=== PATIENT | female | born 1990 | race African-American/Black ===

== ENCOUNTER 2022-02-09 09:24 | Outpatient (CLI) | payer OTHER, SELFPAY ==
--- NOTE | ~2022-02-09 | US_ITS ---
EXAMINATION: US pelvic complete w TV DATE: 02/09/2022 09:58 INDICATION: Excessive and frequent menstruation with irregular cycles. TECHNIQUE: Multiple transabdominal and transvaginal sonographic images of the pelvis were obtained. COMPARISON: Ultrasound 10/25/2021 FINDINGS: TRANSABDOMINAL ULTRASOUND: The uterus measures 7.2 x 4.4 x 5.7 cm. There is no free fluid in the pelvis. TRANSVAGINAL ULTRASOUND: The endometrial complex measures 6 mm in thickness. There is a scar in anterior lower uterine segment from prior section. The right ovary measures 2.8 x 1.4 x 2.3 cm. The left ovary measures 2. 5 x 1.8 x 1.4 cm. There is normal vascular flow in the ovaries. IMPRESSION: 1. Normal pelvis. Reviewed, dictated and finalized at location A. IMPRESSION: 1. Normal pelvis.
[2022-02-09 10:21] LABS: Hematocrit 37.4 % (37.0-47.0); Hemoglobin 11.7 g/dL (12.0-15.0); Mean Corpuscular HGB Conc 31.3 g/dl (32-36); Mean Corpuscular Hemoglobin 25.8 pg (26-34); Mean Corpuscular Volume 82.6 fl (80-100); Mean Platelet Volume 9.7 fl (7.4-10.4); Platelet Count Result 307 k/mm3 (150-375); Red Blood Count 4.53 M/mm3 (4.2-5.4); Red Cell Distribution Width 14.9 % (11.5-14.5); White Blood Count 8.8 K/mm3 (4.5-10.0)
== END 2022-02-09 09:25 | disposition home or self-care (01) ==
PROVIDERS: Visit Provider Obstetrics & Gynecology
DX: N92.1 Excessive and frequent menstruation with irregular cycle (principal); N85.00 Endometrial hyperplasia, unspecified
CPT/HCPCS: 36415; 76830; 76856; 85027

== ENCOUNTER 2022-04-08 07:52 | Outpatient (CLI) | payer OTHER, SELFPAY | END 2022-04-08 07:53 | disposition home or self-care (01) | PROVIDERS: Visit Provider Obstetrics & Gynecology | DX: Z01.812 Encounter for preprocedural laboratory examination (principal); N92.1 Excessive and frequent menstruation with irregular cycle | CPT/HCPCS: 36415; 86850; 86900; 86901 ==

== ENCOUNTER 2022-04-14 07:04 | Inpatient (IN) | payer OTHER, SELFPAY ==
--- NOTE | 2022-04-04 14:50 | SUR.PREOP ---
Report to the Outpatient Waiting Room, entrance under the green pavilion located off [facility], at time 0700 on date 04/14/22. OR Time: 0900. - You and your visitor will be asked a series of questions to screen for COVID 19 for your protection. - Only one visitor is allowed at this time. - The patient visitor is requested to leave or wait in car when not with patient. - A mask is required within the hospital. Patients may have clear liquids (water, carbonated beverages, clear teas, apple juice) until 3 hours prior to surgery with a maximum of 20 ounces. - NO CLEARS LIQUIDS AFTER 0600 - No food from midnight until time of surgery - Infants may have breast milk until 4 hours before surgery, infant formula 6 hours prior to surgery. - Children will be allowed to drink immediately following surgery. If applicable, please bring a bottle or sippy cup to assist with drinking. Juice, water, soda, and popsicles are readily available. For infants on formula, please bring formula the day of surgery. Pacifiers are allowed. Please no make-up, nail azeri, hairspray, perfume, deodorant, or body powder the day of surgery. No jewelry (including any body piercings) or valuables the day of surgery, leave them at home. Please take a shower or bath the night before, or the morning of, surgery with an antibacterial soap. Wear comfortable, loose fitting clothing. Children are encouraged to wear pajamas. - Jewelry must be removed prior to entering the operating room. Rings and piercings that are not removed may be cut off. - The hospital will not accept responsibility for valuables. - Please leave all valuables, including medications, at home the day of surgery. If you are going home after surgery, a licensed owner operator tanker truck driver must drive you home. - NO public transportation without another adult. - We recommend that an adult stay with you for 24 hours following discharge. - We also recommend that you do not drive, make important decision, drink alcoholic beverages, or take any drugs that were not prescribed by your health care provider for at least 24 hours after your discharge time. For Pediatric surgeries, we recommend two adults accompany the child home (only one inside the building at this time). Follow any additional instructions given to you from your surgeon. If you or anyone in your household have experienced Covid symptoms in the past week, please notify your surgeon or the nurse liaison at the phone number below for possible testing. Telephone instructions given to JENNIFER KEMP and asked if any additional questions and then verbalized understanding. Patient advised to call surgeon office or pre surgery nurse liaison [phone] if any additional questions.
[2022-04-04 15:03] VITALS: BMI 28.8
--- NOTE | 2022-04-12 18:19 | PM.IMHP ---
H&P: HPI History of Present Illness Date/Time: 04/12/22 18:19 31-year-old female 5 para 5005 presents with complaints of menstrual cycles lasting 5-7 days to 3 days very heavy with clotting cramping. These problems are interfering with her activities of daily living. Last year she underwent hysteroscopy D&C endometrial ablation which did work for a few months but states that she has intermittently and progressively been having the above-listed problems. We have discussed hormonal management and she declines this. Will proceed with hysterectomy, which will be supracervical due to her history of 5 previous deliveries. Chief Complaint: menometrorrhagia /failed endometrial ablation PMFSH Past Medical History Medical History Depression Surgical History Surgical History History of 02/05/05 12/04/05 02/24/11 04/15/13 History of hysteroscopy (10/22/20) Ablation History of tubal ligation (04/15/13) Hx laparoscopic cholecystectomy (12/20/13) Family History Family History Father Cerebrovascular accident Diabetes mellitus Hypertension Social History Social History Smoking status: Never smoker Alcohol intake: never Substance use: never Additional living arrangements comments: single Additional occupation/education comments: security Gender identity (if verbalized by the patient): Female Sexual Orientation (if Verbalized by the Patient): Straight or Heterosexual Spiritual care concerns: No Meds Home Medications and Allergies Home Medications Medication Instructions Recorded Confirmed Type No Home Medications 01/26/22 04/04/22 History Allergies Allergy/AdvReac Type Severity Reaction Status Date / Time ciprofloxacin [From Cipro] Allergy Severe Swelling Verified 04/04/22 14:43 ibuprofen Allergy Severe Difficulty Verified 04/04/22 14:43 Breathing tramadol Allergy Severe Vomiting Verified 04/04/22 14:43 Quinolones Allergy Intermediate Nausea and Unverified 04/04/22 14:43 Vomiting Exam Const: General: cooperative, healthy appearing and comfortable Resp: Effort & Inspection: normal respiratory effort Auscultation: clear to auscultation bilaterally Cardio: Rate: regular rate Rhythm: regular rhythm GI: Inspection: normal to inspection Auscultation: normal bowel sounds : External Female Exam: normal external appearance Speculum Exam - Vagina: normal appearance of the vagina Speculum Exam - Cervix: normal appearance of the cervix Bimanual exam- vagina & uterus: enlarged ( 10-12 week size and fixed) Bimanual Exam- Adnexa, other: normal adnexae Assessment and Plan Assessment and plan (1) Menometrorrhagia: Code(s): N92.1 - Excessive and frequent menstruation with irregular cycle Status: Acute (2) History of endometrial ablation: Code(s): Z98.890 - Other specified postprocedural states Status: Acute (3) Previous section: Code(s): Z98.891 - History of uterine scar from previous surgery Status: Acute Plan will proceed with abdominal hysterectomy with ovarian preservation. Likely will be supracervical.
[2022-04-14] VITALS (11 sets, daily range): BP systolic 93–134; BP diastolic 59–85; PULSE 74–104; RESP 14–18; TEMP 36.1–36.8; O2SAT 98–100
[2022-04-14] MEDS: LACTATED RINGERS 1,000 ML 30 ML IV CONT ×2 (07:45→10:09)
[2022-04-14] MEDS: ACETAMINOPHEN 500 MG TABLET 1000 MG PO (07:45)
[2022-04-14] MEDS: SCOPOLAMINE 1.5 MG PATCH TRANSDERM (07:49)
--- NOTE | 2022-04-14 07:55 | WPDANESEPPF ---
Anes - Initial Pre Proc Eval Procedure: Operation Date: 04/14/22 08:30 Proposed Procedures p Supracervical Abdominal Hysterectomy - Eleno Perez MD Date/Time: 04/14/22 07:55 Surgeon: Eleno Perez MD Pre Op Diagnosis: menometrorrhagia Patient Data Age: 31 Gender: F Height: 1.75 m Weight: 84.1 kg Allergies Allergy/AdvReac Type Severity Reaction Status Date / Time ciprofloxacin [From Cipro] Allergy Severe Swelling Verified 04/14/22 07:25 ibuprofen Allergy Severe Difficulty Verified 04/14/22 07:25 Breathing tramadol Allergy Severe Vomiting Verified 04/14/22 07:25 Quinolones Allergy Intermediate Nausea and Verified 04/14/22 07:25 Vomiting Home Medications Medication Instructions Recorded Confirmed Type No Home Medications 01/26/22 04/14/22 History Patient hx anesthesia problems: none Family hx anesthesia problems: none Results Review: All pre-operative results and documents have been reviewed as part of the pre-operative evaluation. [facility] Past Medical History Medical History Depression Surgical History Surgical History History of 02/05/05 12/04/05 02/24/11 04/15/13 History of hysteroscopy (10/22/20) Ablation History of tubal ligation (04/15/13) Hx laparoscopic cholecystectomy (12/20/13) Family History Family History Father Cerebrovascular accident Diabetes mellitus Hypertension Social History Social History Smoking status: Never smoker Alcohol intake: never Substance use: never Additional living arrangements comments: single Additional occupation/education comments: security Gender identity (if verbalized by the patient): Female Sexual Orientation (if Verbalized by the Patient): Straight or Heterosexual Spiritual care concerns: No Anes - Eval Final PreProcedure Day of Procedure 04/14/22 07:55 Patient weight: overweight Heart: regular rate and rhythm Lungs: clear to auscultation Airway: Mallampati scale class II Neurological: alert and oriented Last oral intake: >/= 8 hours ASA classification: II Emergent: no Anesthetic plan: proceed Anesthesia type and monitoring: general ETT and standard monitoring Results Review: All pre-operative results and documents have been reviewed as part of the pre-operative evaluation. Informed Consent: The patient's anesthetic plan and its attendant risks and benefits were discussed with the patient/family/POA. Questions were solicited and answers provided to the satisfaction of the patient/family/POA.
--- NOTE | 2022-04-14 08:08 | WPDHPUPDATE1 ---
History and Physical Update Update Date/Time: 04/14/22 08:08 History and Physical has been reviewed, including an updated exam of the patient. There are NO changes in the patient's condition. Risks, benefits, and alternatives have been discussed and questions answered. Patient agrees to proceed with procedure.
--- NOTE | 2022-04-14 08:10 | SUR.PREOP ---
DR ORTEZ AWARE THAT PATIENT DID NOT RECEIVE TORADOL DUE TO SEVERE ALLERGY TO IBUPROFEN RESULTING IN DIFFICULTY BREATHING.
[2022-04-14] MEDS: ceFAZolin 2 GM/D5W 50 ML 2 GM/50 ML BAG IVPB (08:20)
--- NOTE | 2022-04-14 10:01 | P.OP_ITS ---
Procedure Note - Detailed Date of Procedure 04/14/22 Pre-op Diagnosis menometrorrhagia Post-op Diagnosis Same Procedure Performed Abdominal supracervical hysterectomy with ovarian preservation Surgeon Eleno Perez MD Anesthesia General Findings Cervix densely adhered to bladder. Uterus globular though not significantly enlarged. Ovaries without abnormality. Description of Procedure Patient prepped in usual manner for this procedure. Pfannenstiel incision was made and carried down to the fascia. This was extended bilaterally the length of the skin incision. Superiorly inferiorly dissected away from the rectus muscles. Peritoneum was gently entered and no significant adhesions of bowel or omentum to the anterior abdominal wall. Patient was placed in Trendelenburg position and bowel was packed into the upper abdomen. Round ligaments were caut erized cut and bladder flap was developed down to the cervix. Posterior leaf was also dissected. Utero-ovarian ligaments were clamped cut and tied with good hemostasis noted. Uterine vessels were then skeletonized and cauterized cut and tied. Hemostasis was noted. At this point the cervix was amputated at the level of the cervix. Cervix was then closed using 0 Vicryl in running interlocking manner with good approximation hemostasis noted. Also of fascial suture sites were noted be hemostatic and was no significant bleeding from any of the other adhesive sites. John was empirically placed over the vaginal cuff. After all subfascial tissue was noted hemostatic and there was no bleeding the fascia was approximated 0 Vicryl in the left angle midline and the right angle to midline with good approximation. Subcutaneous tissue was approximated 0 suture and 4-0 Monocryl was used to approximate the skin edges. Patient was sent to recovery room in stable condition. Estimated Blood Loss 150 Drains Yes (Petty drainage to gravity) Packing No Pathology Yes Complications No immediate complications Condition Stable Disposition PACU [facility] Billing Surgery - Charge Forward: Surgery Billing
[2022-04-14] MEDS: ONDANSETRON INJ 4 MG/2 ML VIAL IV PUSH ×2 (10:32→14:45)
[2022-04-14] MEDS: HALOPERIDOL LACTATE 5 MG/ML VIAL 1 MG IV PUSH (11:04)
--- NOTE | 2022-04-14 11:04 | SUR.PHASEI ---
1058- Call to Dr. Sharpe for additional orders for anti emetic medication. Patient requesting medication to be given after 4MG zofran IVP at 1032 did not improve nausea. Orders obtained and placed for Haldol 1MG IVP, see NOV.
--- NOTE | 2022-04-14 11:24 | PC.NURSE ---
This patient, Roxie Gilmore, was received from PACU on 04/14/22 at 1124. Patient's family oriented to unit policies and routines, patient very drowsy at this time.
[2022-04-14] MEDS: DEXTROSE 5%/0.45% SOD CHL 1,000 ML 125 ML IV CONT (12:06)
[2022-04-14] MEDS: SIMETHICONE 80 MG TAB.CHEW PO ×2 (12:50→14:52)
[2022-04-14] MEDS: HYDROcodone/acetaminophen (*CRX) 5-325 MG TABLET 1 TAB PO (12:50)
[2022-04-14] MEDS: MORPHINE SULFATE (*CRX) 4 MG/ML INJ IV PUSH ×2 (14:46→18:38)
--- NOTE | 2022-04-14 18:51 | PC.NURSE ---
1156 Called Carina in Pharmacy to check interaction w/ Morphine RFP WRITER ordered and the Haldol that pt had received at 1104, the medications are not in the same class but Morphine can increase sedation. RN will hold Morphine RFP WRITER and call Dr. Perez. 1215 Called office, closed for lunch. Called exchange and MD has surgery scheduled at 1230. 1250 Pt c/o pain and is less drowsy, will hold Morphine RFP WRITER still and give [place] PO. Pt ok with that plan. 1315 Dr. Dailey on the floor, said Chris may still be in surgery, will have him call RN. [address] Perez's exchange, received call back. OK to HOLD Morphine RFP WRITER and D/C. Received order for Reglan 10mg q6 hrs PRN for nausea as pt is c/o of nausea and only has Zofran ordered. Advised MD that pt received Haldol in PACU for nausea and was very drowsy upon admission, RN held Morphine RFP WRITER and had given [place] 5mg @ 1250, pt tolerated well. Pt is now more alert and awake, ok per MD to continue with Morphine ordered IV push 4mg q4hrs and [place] PO for pain control. 1503 Upon entering order for Reglan, received alert on pt chart for interaction b/w Reglan and the Haldol given in PACU as a 1x order. Spoke w/ Carina in Pharmacy, ok to override as pt is no longer receiving Haldol.
[2022-04-15 00:35] VITALS: BP 110/70; PULSE 110; RESP 18
[2022-04-15] MEDS: MORPHINE SULFATE (*CRX) 4 MG/ML INJ IV PUSH (00:35)
[2022-04-15 04:54] LABS: Basophils Absolute Auto 0.1 K/mm3 (0.0-0.1); Basophils Percent Auto 0.6 % (0.2-1.2); Eosinophils Absolute Auto 0.1 K/mm3 (0-0.3); Eosinophils Percent Auto 0.6 % (0-4.4); Hematocrit 31.7 % (37.0-47.0); Hemoglobin 9.8 g/dL (12.0-15.0); Immature Granulocyte Absolute 0.04 K/mm3 (0.00-0.031); Immature Granulocyte Percent A 0.3 % (0-0.5); Lymphocytes Absolute Auto 2.34 K/mm3 (0.9-3.2); Lymphocytes Percent Auto 18.8 % (18.3-44.2); Mean Corpuscular HGB Conc 30.9 g/dl (32-36); Mean Corpuscular Hemoglobin 24.4 pg (26-34); Mean Corpuscular Volume 79.1 fl (80-100); Mean Platelet Volume 9.1 fl (7.4-10.4); Monocytes Absolute Auto 0.9 K/mm3 (0.1-0.6); Monocytes Percent Auto 7.5 % (2.6-8.5); Neutrophils Percent Auto 72.2 % (45.5-73.1); Platelet Count Result 363 k/mm3 (150-375); Red Blood Count 4.01 M/mm3 (4.2-5.4); Red Cell Distribution Width 14.9 % (11.5-14.5); White Blood Count 12.5 K/mm3 (4.5-10.0)
[2022-04-15 05:30] VITALS: BP 90/53; PULSE 98; RESP 20; TEMP 36.9
[2022-04-15] MEDS: HYDROcodone/acetaminophen (*CRX) 10-325 MG TABLET 1 TAB PO ×5 (05:33→23:18)
--- NOTE | 2022-04-15 06:53 | PM.GYNPNOP ---
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 Status: Acute Postoperative Procedures: Procedures Operation Date: 04/14/22 08:30 Actual Procedure Side Surgeon p Supracervical Abdominal Hysterectomy Eleno Perez MD Postoperative day: 1 Postoperative status: doing well Postoperative plan: routine post-op care, ambulate, advance diet and voiding trials Time Spent With Patient Time: Total time spent is greater than 50% in coordination of care (as documented) at patient's floor/unit and/or counseling patient: Time with patient: less than 15 minutes ABLE BODIED TANKERMAN- PN:Subj Post-Op Subjective Date/time seen: 04/15/22 06:53 Interval history: POD#1 Roxie reports doing ok today. Her pain is present but better controlled with the PO meds. She tried eating dinner last night but then had vomiting; none since and plans to order breakfast. Petty catheter was removed this AM; has not voided spontaneously yet. She denies gas. She has not ambulated yet, felt faint when trying for the first time. Review of Systems Constitutional: Constitutional: Denies chills, Denies fever(s) and Denies headache(s) Eyes: Eyes: Denies change in vision ENT: Denies dizziness and Denies headache(s) Cardiovascular: Cardiovascular: Denies chest pain, Denies palpitations and Denies dyspnea Respiratory: Respiratory: Denies cough and Denies dyspnea Gastrointestinal: Gastrointestinal: Denies nausea and Denies vomiting Genitourinary: Comments: normal bleeding Neurologic: Denies dizziness and Denies headache(s) Endocrine: Endocrine: Denies palpitations Exam Const: General: cooperative, healthy appearing, comfortable and no acute distress Orientation/consciousness: patient oriented x3 Resp: Effort & Inspection: normal respiratory effort Auscultation: clear to auscultation bilaterally Cardio: Rate: regular rate GI: Inspection: non-distended and incision (covered with clean dressing) GI Palp: Yes abdominal tenderness (appropriate) and Yes Soft to palpation Auscultation: normal bowel sounds Skin: General skin exam: normal color Neuro: General: patient oriented x3 Extrem: General: normal to inspection Psych: Appearance: grossly normal Affect: normal affect Attitude: cooperative ABLE BODIED TANKERMAN - PN: Obj Data Vital Signs Vital Signs: Vital Signs - 24 hr 04/14/22 07:05 04/14/22 10:09 04/14/22 10:20 Temperature 96.9 F L 97.9 F Pulse Rate 88 77 78 Respiratory Rate 18 14 15 Blood Pressure 134/85 99/59 L 93/62 L Pulse Oximetry 100 99 98 Oxygen Delivery Room Air Simple Face Mask Simple Face Mask Oxygen Flow Rate 8 8 04/14/22 10:25 04/14/22 10:30 04/14/22 10:45 Temperature 98.3 F Pulse Rate 79 76 74 Respiratory Rate 15 16 14 Blood Pressure 95/64 L 111/68 112/74 Pulse Oximetry 100 100 100 Oxygen Delivery Simple Face Mask Simple Face Mask Room Air Oxygen Flow Rate 8 8 04/14/22 11:00 04/14/22 11:25 04/14/22 12:27 Temperature 97.3 F L Pulse Rate 74 91 78 Respiratory Rate 18 16 16 Blood Pressure 126/73 134/72 Pulse Oximetry 99 100 Oxygen Delivery Room Air Oxygen Flow Rate 04/14/22 16:00 04/14/22 20:55 04/15/22 00:35 Temperature 98.2 F 97.7 F Pulse Rate 97 104 H 110 H Respiratory Rate 16 18 18 Blood Pressure 104/66 113/71 110/70 Pulse Oximetry 100 Oxygen Delivery Oxygen Flow Rate 04/15/22 05:30 Temperature 98.4 F Pulse Rate 98 Respiratory Rate 20 Blood Pressure 90/53 L Pulse Oximetry Oxygen Delivery Oxygen Flow Rate Intake/Output Intake/Output: Intake & Output 04/12/22 04/13/22 04/14/22 04/15/22 23:59 23:59 23:59 23:59 Intake Total 2500 740 Output Total 560 2800 Balance 1939 -2059 Meds/Results Medications: Active Medications Generic Name Dose Route Start Last Admin Trade Name Freq PRN Reason Stop Dose Admin Hydrocodone Bitart/A
[2022-04-15 08:05] VITALS: BP 105/64; PULSE 98; RESP 16; TEMP 37; O2SAT 97
[2022-04-15 09:45] VITALS: BP 96/53; PULSE 98; RESP 16; O2SAT 97
[2022-04-15] MEDS: METOCLOPRAMIDE HCL INJ 10 MG/2 ML VIAL IV PUSH (09:59)
[2022-04-15 10:00] VITALS: PULSE 98; RESP 16; O2SAT 97
--- NOTE | 2022-04-15 12:58 | P.PNAN_ITS ---
Anes - Prog Note Post-Op Date/Time: 04/15/22 12:58 Cardiovascular status: normal Respiratory status: normal Airway patency: baseline Mental status: baseline Post-Op hydration status: normal Vital Signs: Last Vital Signs Temp 37.0 C 04/15/22 08:05 Pulse 98 04/15/22 09:45 Resp 16 04/15/22 09:45 BP 96/53 L 04/15/22 09:45 Pulse Ox 97 04/15/22 09:45 O2 Del Method Room Air 04/14/22 11:00 O2 Flow Rate 8 04/14/22 10:30 Pain Score (VAS): 09/27 I/O: Intake & Output 04/14/22 04/15/22 04/15/22 23:59 07:59 15:59 Intake Total 1700 740 Output Total 500 2800 Balance 1200 -2060 Laboratory Tests 04/15/22 04:13 04/15/22 04:13 WBC 12.5 H RBC 4.01 L Hgb 9.8 L Hct 31.7 L MCV 79.1 L MCH 24.4 L MCHC 30.9 L RDW 14.9 H Plt Count 363 MPV 9.1 Immature Gran % (Auto) 0.3 Neut % (Auto) 72.2 Lymph % (Auto) 18.8 [place] % (Auto) 7.5 Eos % (Auto) 0.6 Baso % (Auto) 0.6 Lymph # (Auto) 2.34 [place] # (Auto) 0.9 H Eos # (Auto) 0.1 Baso # (Auto) 0.1 Abs Immat Gran (auto) 0.04 H Absolute Neuts (auto) 9.0 H Absolute Nucleated RBC 0.0 Nucleated RBC % 0.0 Post-procedural complaints: none Patient Feedback: Patient satisfied with anesthetic care.
[2022-04-15 19:00] VITALS: BP 106/65; PULSE 98; RESP 16; TEMP 36.4
[2022-04-16] MEDS: HYDROcodone/acetaminophen (*CRX) 10-325 MG TABLET 1 TAB PO ×2 (05:31→11:55)
--- NOTE | 2022-04-16 10:37 | PM.DS ---
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 She had extensive adhesions but an uncomplicated post-operative course. Stable vitals, labs, and exam. Status at Discharge Functional status at discharge: independent ambulation Overall status at discharge: patient is back to baseline Time Spent with Patient Time attestation: Total time spent providing and/or coordinating discharge services: Time spent: Less than 30 minutes Exam Const: General: cooperative, healthy appearing, comfortable and no acute distress Orientation/consciousness: patient oriented x3 Resp: Effort & Inspection: normal respiratory effort Auscultation: clear to auscultation bilaterally Cardio: Rate: regular rate GI: Inspection: non-distended and incision (covered with clean dressing) GI Palp: Yes abdominal tenderness (appropriate) and Yes Soft to palpation Auscultation: normal bowel sounds Skin: General skin exam: normal color Neuro: General: patient oriented x3 Extrem: General: normal to inspection Psych: Appearance: grossly normal Affect: normal affect Attitude: cooperative DS: Data Data Completed and Pending Completed studies during hospitalization: Pending at discharge 04/14/22 09:31 Surgical [PTH] Routine Discharge Plan Discharge Attending physician on discharge: Penelope Dailey Discharging Clinician: Penelope Dailey Anticipated Discharge Date/Time: 04/16/22 14:00 Patient Disposition: Home, Self-Care Activity: may shower, may drive after 2 weeks, pelvic rest and other - see discharge instructions Diet: regular Discharge Instructions: Remove the Scopolamine patch that was placed behind your ear on 04/14/2022 in 72 hours or less. Wash your hands after touching. No heavy lifting greater than 10 pounds for 6 weeks. Nothing in the vagina (no baths/pools, sex, tampons) for 6 weeks. Remove dressing by 04/20/22. Patient Instructions: Hysterectomy (DC) Stand Alone Forms: General Discharge Instructions Follow-up/Referrals: Eleno Perez MD [Physician] - 2 Weeks Discharge Medications: New hydrocodone-acetaminophen 5-325 mg Tablet 1 tablet PO Q3H PRN (Reason: Pain Rated 5 Or Less) 3 Days Qty: 24 0RF docusate sodium [Col-Rite] 100 mg capsule 100 mg PO BID Qty: 60 0RF No Action No Home Medications Date of admission: 04/15/22 14:10 Primary Care Provider: PHYSICIAN,OCCUPATIONAL THERAPY ASSIST Admitting Provider: Eleno Perez Attending physician on admission: Eleno Perez Condition: Stable
== END 2022-04-16 12:25 | disposition home or self-care (01) | DRG 513 ==
LOC: ANHSURGERY 10:49 → ANHOB2 04-16 10:37
PROVIDERS: Admitting Provider Obstetrics & Gynecology; Visit Provider Obstetrics & Gynecology
PROC: 0UT94ZZ Resection of Uterus, Percutaneous Endoscopic Approach (ICD-10-PCS; CPT 58180; principal; 2022-04-14 08:30)
DX: N92.1 Excessive and frequent menstruation with irregular cycle (principal); N83.8 Other noninflammatory disorders of ovary, fallopian tube and broad ligament; R10.2 Pelvic and perineal pain; Z98.891 History of uterine scar from previous surgery; Z90.49 Acquired absence of other specified parts of digestive tract
CPT/HCPCS: 58180; 36415; 85025; 88307; 99199; A9270; G0378; G0379; J0690; J1100; J1170; J1630; J2250; J2270; J2405; J2704; J2710; J2765; J3010; J7120

== ENCOUNTER 2024-04-13 08:51 | Emergency (ER) | payer MEDICAID, SELFPAY ==
[2024-04-13 08:54] VITALS: BP 128/84; PULSE 105; RESP 18; TEMP 36.4; O2SAT 100
--- NOTE | 2024-04-13 09:11 | ED.DENTAL ---
HPI - Dental/Oral General Chief complaint: Dental/Oral Stated complaint: dental abscess Time Seen by Provider: 04/13/24 09:01 History of Present Illness HPI Narrative: 33-year-old female presenting to the emergency department for evaluation for left-sided facial pain and swelling. Patient does have a history of dental caries but has not had dental infection in quite some time. Patient began having dental pain yesterday was taking Tylenol for pain control. Patient began having worsening swelling this morning. Patient does have follow-up with a dentist scheduled for this coming Monday. Patient states swelling has come was too great so she needed to be evaluated. Upon arrival emergency department patient does appear uncomfortable due to the facial pain and swelling. Related Data Allergies Allergy/AdvReac Type Severity Reaction Status Date / Time ciprofloxacin [From Cipro] Allergy Severe Swelling Verified 04/13/24 08:57 ibuprofen Allergy Severe Difficulty Verified 04/13/24 08:57 Breathing tramadol Allergy Severe Vomiting Verified 04/13/24 08:57 Quinolones Allergy Intermediate Nausea and Verified 04/13/24 08:57 Vomiting Review of Systems Review of Systems: All systems reviewed & are unremarkable except as noted in HPI and below PMFSH Past Medical History Medical History Depression Surgical History Surgical History History of 02/05/05 12/04/05 02/24/11 04/15/13 History of hysteroscopy (10/22/20) Ablation History of tubal ligation (04/15/13) Hx laparoscopic cholecystectomy (12/20/13) S/P abdominal supracervical subtotal hysterectomy (04/14/22) Abdominal supracervical hysterectomy with ovarian preservation Family History Family History Father Cerebrovascular accident Diabetes mellitus Hypertension Social History Social History (Updated 05/19/22 @ 13:34 by NATHALY Payton) Smoking status: Never smoker Alcohol intake: never Substance use: never Substance use type: does not use Living arrangements: other Additional living arrangements comments: single Occupation/Education: occupation Additional occupation/education comments: security Gender identity (if verbalized by the patient): Female Sexual Orientation (if Verbalized by the Patient): Straight or Heterosexual Spiritual care concerns: No Exam Narrative: APPEARANCE: Uncomfortable HEAD: normocephalic, left facial swelling. EYES: PERRLA/EOMI, conjunctivae clear. NOSE: Normal no drainage EARS:TMS clear with good light reflex. THROAT: Pharynx clear, no exudate. NECK: Supple. No adenopathy, no masses. RESPIRATORY: Airway patent, respirations nonlabored. Clear to auscultation bilaterally, no rales, rhonchi, wheezing. CARDIOVASCULAR: Regular rate and rhythm without murmurs rubs or gallops. ABDOMINAL: Soft, nontender, nondistended, normal bowel sounds MUSCULOSKELETAL: Moves all extremities. Strength/ROM intact, No edema, No calf tenderness. NEURO: Alert. Cranial nerves II through XII intact. Grossly intact SKIN: Warm, dry. Normal Color Course Course Emergency Course: Patient was started on antibiotics and provided medications for pain control and encouraged to have close follow-up with her dentist Vital Signs Vital signs: Vital Signs Temperature 97.6 F 04/13/24 08:54 Pulse Rate 105 H 04/13/24 08:54 Respiratory Rate 18 04/13/24 08:54 Blood Pressure 128/84 04/13/24 08:54 Pulse Oximetry 100 04/13/24 08:54 Oxygen Delivery Room Air 04/13/24 08:54 Temperature 97.6 F 04/13/24 08:54 Pulse Rate 105 H 04/13/24 08:54 Respiratory Rate 18 04/13/24 08:54 Blood Pressure 128/84 04/13/24 08:54 Pulse Oximetry 100 04/13/24 08:54 Oxygen Delivery Room Air 04/13/24 08:54 MDM - Dental/Oral MDM Narrative
[2024-04-13] MEDS: HYDROcodone/acetaminophen (*CRX) 5-325 MG TABLET 1 TAB PO (09:23)
[2024-04-13] MEDS: AMOXICILLIN/CLAVULANATE K 875-125 MG TAB 1 TABLET PO (09:23)
== END 2024-04-13 09:25 | disposition home or self-care (01) ==
LOC: ANHED 09:33
PROVIDERS: Emergency Provider Emergency Medicine
DX: K02.9 Dental caries, unspecified (principal)
CPT/HCPCS: 99283; A9270

== ENCOUNTER 2024-06-07 09:54 | Emergency (ER) | payer MEDICAID, BC, SELFPAY ==
[2024-06-07 09:59] VITALS: BP 129/77; PULSE 83; RESP 19; TEMP 36.8; O2SAT 99
--- NOTE | 2024-06-07 13:59 | PC.NURSE ---
Pt called to a room w/ no answer. Mult attempts. Pt did not notify sessions clerk was leaving the ED.
== END 2024-06-07 13:59 | disposition left against medical advice (07) ==
LOC: ANHED 14:12
DX: Z53.21 Procedure and treatment not carried out due to patient leaving prior to being seen by health care provider (principal)
CPT/HCPCS: 99199